=== PATIENT | female | born 1955 | race Caucasian/White ===

== ENCOUNTER 2018-08-04 10:02 | Day surgery (SDC) | payer MEDICARE, MEDICAID ==
[2018-08-03 16:32] LABS: BASOPHILS # (AUTO) 0.1 X10'3 (0-0.2); BASOPHILS % (AUTO) 1.2 % (0-1); EOSINOPHILS # (AUTO) 0.4 X10'3 (0-0.9); EOSINOPHILS % (AUTO) 5.6 % (0-6); HEMATOCRIT 23.2 % (35.0-45.0); HEMOGLOBIN 7.1 g/dl (12.0-16.0); LYMPHOCYTES # (AUTO) 2.5 X10'3 (1.1-4.8); LYMPHOCYTES % (AUTO) 35.2 % (21-51); MEAN CORPUSCULAR HEMOGLOBIN 18.7 PG (27.0-31.0); MEAN CORPUSCULAR HGB CONC 30.6 % (33.0-36.5); MEAN CORPUSCULAR VOLUME 61.1 FL (78-98); MEAN PLATELET VOLUME 7.6 FL (7.4-10.4); MONOCYTES # (AUTO) 0.6 X10'3 (0-0.9); MONOCYTES % (AUTO) 8.4 % (2-12); NEUTROPHILS # (AUTO) 3.5 X10'3 (1.8-7.7); NEUTROPHILS % (AUTO) 49.6 % (42-75); PLATELET COUNT 436 X10'3 (140-440); RED CELL DISTRIBUTION WIDTH 16.5 % (11.5-14.5)
[2018-08-03 16:40] LABS: INR 1.2 INR; PARTIAL THROMBOPLASTIN TIME 26 SECONDS (22-32); PROTHROMBIN TIME 12.5 SECONDS (9.0-12.0)
[2018-08-03 16:44] LABS: ALBUMIN 4.1 G/DL (3.4-5.0); ANION GAP 14 (8-16); BLOOD UREA NITROGEN 20 MG/DL (7-18); BUN/CREATININE RATIO 9.6 (6.6-38.0); CALCIUM 8.8 MG/DL (8.5-10.1); CHLORIDE 101 MMOL/L (99-107); CREATININE 2.08 MG/DL (0.40-0.90); GLUCOSE 110 MG/DL (70-104); POTASSIUM 3.9 MMOL/L (3.5-5.1); SODIUM 136 MMOL/L (135-145); TOTAL CARBON DIOXIDE 21.1 MMOL/L (24-32); eGFR 24 ML/MIN
[2018-08-03 17:06] LABS: ANISOCYTOSIS 1+; HYPOCHROMASIA 1+; MICROCYTOSIS 2+; PLATELET ESTIMATE NORMAL
[2018-08-03 17:08] LABS: POIKILOCYTOSIS 1+; POLYCHROMASIA 1+; SPHEROCYTES FEW; TARGET CELLS FEW; TEAR DROP CELLS FEW
[~2018-08-04] VITALS: Ht 154.9 cm; Wt 93.3 kg
[2018-08-04] VITALS (12 sets, daily range): BP systolic 133–174; BP diastolic 62–85
[2018-08-04] MEDS ORDERED: normal saline 1000ml 1,000 ML IV SCH (10:35)
[2018-08-04] MEDS ORDERED: PANT-47 PO (10:39)
[2018-08-04] MEDS ORDERED: HYDR-565 PO (10:39)
[2018-08-04] MEDS ORDERED: ISOS10TA8 (10:39)
[2018-08-04] MEDS ORDERED: HYDR25TA4 PO (10:39)
[2018-08-04] MEDS ORDERED: NAPR-996 PO (10:39)
[2018-08-04] MEDS ORDERED: ADAL40PE SUBCUT (10:39)
[2018-08-04] MEDS ORDERED: BIOT10004 PO (10:39)
[2018-08-04] MEDS ORDERED: ENAL20TA75 PO (10:39)
[2018-08-04] MEDS ORDERED: FENO160T13 PO (10:39)
[2018-08-04] MEDS ORDERED: CARV-50 PO (10:39)
[2018-08-04] MEDS ORDERED: HYDR200T80 PO (10:39)
[2018-08-04] MEDS ORDERED: LORazepam 0.5 MG tablet PO PRN (11:30)
[2018-08-04] MEDS ORDERED: acetylcysteine 200 MG/ml 4ml vial PO SCH ×2 (11:30→14:32)
[2018-08-04] MEDS ORDERED: diphenhydrAMINE 25mg capsule PO PRN (11:30)
[2018-08-04] MEDS ORDERED: sod bicarbonate 150mEq in D5W 1,150 ML IV ONE (11:40)
[2018-08-04] MEDS ORDERED: iohexol 350 MG/ML 50ML vial IV ONE (12:03)
[2018-08-04] MEDS ORDERED: heparin 1,000unit/ml 10ml vial 10 ML ONE (12:03)
[2018-08-04] MEDS ORDERED: iohexol 350MG/ML 100ml bottle IV ONE (12:03)
[2018-08-04] MEDS ORDERED: nitroGLYCERIN-Tridil 50MG/D5W 250 ML IV ONE (12:03)
[2018-08-04] MEDS ORDERED: LIDOcaine 1% 30ml preserv. free vial ONE (12:04)
[2018-08-04] MEDS ORDERED: hydrALAZINE 20mg/ml inj. IV ONE (13:15)
[2018-08-04] MEDS ORDERED: HYDROmorphone 1 mg/ml syringe ONE (13:29)
[2018-08-04 13:35] LABS: ISTAT Hct MIX 23 %PCV (35-48); ISTAT O2 SATURATION MIX VENOUS 58 % (60-80); ISTAT SOURCE MIX
[2018-08-04 13:35] LABS: ISTAT HGB ART 7.8 g/dl (12.0-16.0); ISTAT Hct ART 23 %PCV (35-48); ISTAT O2 SATURATION ARTERIAL 97 % (95-98); ISTAT SOURCE ART
== END 2018-08-04 20:20 | disposition home or self-care (01) ==
LOC: SSTAY O 10:02
PROVIDERS: ATTEND Internal Medicine Cardiovascular Disease
DX: I25.118 Atherosclerotic heart disease of native coronary artery with other forms of angina pectoris (principal); I12.9 Hypertensive chronic kidney disease with stage 1 through stage 4 chronic kidney disease, or unspecified chronic kidney disease; N18.9 Chronic kidney disease, unspecified; E78.5 Hyperlipidemia, unspecified; M06.9 Rheumatoid arthritis, unspecified; E66.9 Obesity, unspecified; Z68.38 Body mass index [BMI] 38.0-38.9, adult; Z72.89 Other problems related to lifestyle; Z85.3 Personal history of malignant neoplasm of breast; Z90.11 Acquired absence of right breast and nipple; Z92.21 Personal history of antineoplastic chemotherapy; Z86.2 Personal history of diseases of the blood and blood-forming organs and certain disorders involving the immune mechanism; Z86.19 Personal history of other infectious and parasitic diseases; Z79.891 Long term (current) use of opiate analgesic; Z90.710 Acquired absence of both cervix and uterus; Z90.49 Acquired absence of other specified parts of digestive tract; Z79.899 Other long term (current) drug therapy; Z98.890 Other specified postprocedural states; Z83.3 Family history of diabetes mellitus
CPT/HCPCS: 36415; 80048; 82803; 85014; 85025; 85610; 85730; 93005; 93460; A6257; A6449; C1769; J0360; J1170; J1644; J3490; J7030; Q0163; Q9967

== ENCOUNTER 2019-12-29 07:09 | Observation (INO) | payer MEDICARE, MEDICAID ==
[2019-12-28 17:35] LABS: ALBUMIN 4.2 G/DL (3.4-5.0); ANION GAP 13 (8-16); BLOOD UREA NITROGEN 18 MG/DL (7-18); BUN/CREATININE RATIO 13.7 (6.6-38.0); CALCIUM 8.7 MG/DL (8.5-10.1); CHLORIDE 107 MMOL/L (99-107); CREATININE 1.31 MG/DL (0.40-0.90); GLUCOSE 97 MG/DL (70-104); POTASSIUM 3.6 MMOL/L (3.5-5.1); SODIUM 143 MMOL/L (135-145); TOTAL CARBON DIOXIDE 22.9 MMOL/L (24-32); eGFR 41 ML/MIN
[2019-12-28 17:39] LABS: BASOPHILS # (AUTO) 0.1 X10'3 (0-0.2); BASOPHILS % (AUTO) 0.9 % (0-1); EOSINOPHILS # (AUTO) 0.3 X10'3 (0-0.9); EOSINOPHILS % (AUTO) 3.5 % (0-6); HEMATOCRIT 41.7 % (35.0-45.0); HEMOGLOBIN 14.2 g/dl (12.0-16.0); LYMPHOCYTES # (AUTO) 3.4 X10'3 (1.1-4.8); MEAN CORPUSCULAR HEMOGLOBIN 30.9 PG (27.0-31.0); MEAN CORPUSCULAR HGB CONC 34.2 g/dL (33.0-36.5); MEAN CORPUSCULAR VOLUME 90.3 FL (78-98); MEAN PLATELET VOLUME 9.2 FL (7.4-10.4); MONOCYTES # (AUTO) 0.6 X10'3 (0-0.9); MONOCYTES % (AUTO) 6.9 % (2-12); NEUTROPHILS # (AUTO) 4.1 X10'3 (1.8-7.7); NEUTROPHILS % (AUTO) 48.7 % (42-75); PARTIAL THROMBOPLASTIN TIME 29 SECONDS (22-32); PLATELET COUNT 230 X10'3 (140-440); RED BLOOD COUNT 4.61 X10'6 (4.20-5.60); WHITE BLOOD COUNT 8.5 X10'3 (4.5-11.0)
[~2019-12-29] VITALS: Ht 154.9 cm; Wt 95.3 kg
[2019-12-29] VITALS (15 sets, daily range): BP systolic 116–179; BP diastolic 57–75
[~2019-12-29 07:09] MED LIST: ADAL40PE SUBCUT; BIOT10004 PO; CARV-50 PO; ENAL20TA75 PO; FENO160T13 PO; HYDR-4353 PO; HYDR200T80 PO; HYDR25TA4 PO; ISOS10TA8; NAPR-996 PO; PANT-47 PO
[2019-12-29] MEDS ORDERED: normal saline 1,000 ML IV SCH (07:25)
[2019-12-29] MEDS ORDERED: LORazepam 0.5 MG tablet PO PRN (07:25)
[2019-12-29] MEDS ORDERED: diphenhydrAMINE 25mg capsule PO PRN (07:25)
[2019-12-29] MEDS ORDERED: LIDOcaine/PRILOcaine 5gm cream TP ONE (07:30)
[2019-12-29] MEDS ORDERED: ROSU10TA2 PO (07:50)
[2019-12-29] MEDS ORDERED: VITA-268 PO (07:50)
[2019-12-29] MEDS ORDERED: ASPI81TA52 PO (07:50)
[2019-12-29] MEDS ORDERED: DILT-88 PO (07:50)
[2019-12-29] MEDS ORDERED: HYDR-3968 PO (07:50)
[2019-12-29] MEDS ORDERED: acetylcysteine 200 MG/ml 4ml vial PO ONE (09:15)
[2019-12-29] MEDS ORDERED: midazolam 2 mg/2 ml injection ONE (09:17)
[2019-12-29] MEDS ORDERED: nitroGLYCERIN-Tridil 50MG/D5W 250 ML IV ONE (09:17)
[2019-12-29] MEDS ORDERED: LIDOcaine 1% (10mg/ml)w/preservative injection 20ml MDV ONE (09:17)
[2019-12-29] MEDS ORDERED: heparin 1,000unit/ml 10ml vial 10 ML ONE (09:17)
[2019-12-29] MEDS ORDERED: iohexol 350MG/ML 100ml bottle IV ONE (09:17)
[2019-12-29] MEDS ORDERED: verapamil 2.5 mg/ml inj IV ONE (09:17)
[2019-12-29] MEDS ORDERED: fentaNYL/PF 50MCG/1 ML 2ML syringe ONE (09:17)
[2019-12-29] MEDS ORDERED: iohexol 350 MG/ML 50ML vial IV ONE (09:17)
[2019-12-29] MEDS ORDERED: sodium bicarbonate (8.4%) inj. 75 ML in dextrose 5% water 500ml 500 ML IV ONE (09:35)
[2019-12-29] MEDS ORDERED: iohexol 350 MG/1 ML 200ml bottle ONE (10:21)
[2019-12-29] MEDS ORDERED: heparin 25,000 UNIT/250ml bag 250 ML IV ONE (10:21)
[2019-12-29] MEDS ORDERED: hydrALAZINE 20mg/ml inj. IV ONE (10:37)
[2019-12-29] MEDS ORDERED: clopidogrel 300mg tablet ONE (10:50)
[2019-12-29] MEDS ORDERED: heparin 25,000 UNIT/250ml bag 250 ML IV SCH (11:39)
[2019-12-29] MEDS ORDERED: heparin 10,000 units/1 ML INJ IV PRN (11:40)
[2019-12-29] MEDS ORDERED: HYDROcodone/acetaminophen 5mg/325mg tablet PO PRN (11:45)
[2019-12-29] MEDS ORDERED: CLOPIDOGREL BISULFATE 300MG TAB PO ONE (11:50)
[2019-12-29] MEDS ORDERED: acetaminophen 325mg tablet PO PRN (11:50)
[2019-12-29] MEDS ORDERED: magnesium hydroxide 30ml (MOM) UD suspension PO PRN (11:50)
[2019-12-29] MEDS ORDERED: cyclobenzaprine 10mg tablet PO PRN (11:50)
[2019-12-29] MEDS ORDERED: OXAZEpam 15mg capsule PO PRN (11:50)
[2019-12-29] MEDS ORDERED: proCHLORperazine 10 MG/2 ml inj IV PRN (11:50)
[2019-12-29] MEDS ORDERED: HYDROcodone/acetaminophen 10/325mg tab PO PRN (11:50)
[2019-12-29] MEDS: HYDROcodone/acetaminophen 10/325mg tab PO PRN ×2 (12:05→22:11)
[2019-12-29] MEDS ORDERED: morphine 2 MG/ML inj. syringe IV ONE ×2 (13:15→16:10)
[2019-12-29] MEDS ORDERED: morphine 2 MG/ML inj. syringe IV PRN (13:45)
--- NOTE | 2019-12-29 13:45 | NUR ---
TORY RN DID ACT TEST, PULLED SHEATH AFTER ONE HOUR PER MD ORDERS. FEMSTOP WAS PLACED, SMALL HEMATOMA AFTER FEMSTOP WAS PLACED, HOWEVER PRESSURE WAS HELD, RESOLVED. CONTINUING TO MONITOR PATIENT. 2MG MORPHINE WAS GIVEN PER MD ORDERS FOR SEVERE SHOOTING PAIN DOWN HER LEG, MD AWARE.
--- NOTE | 2019-12-29 16:10 | NUR ---
Patient started having severe pain, had another nurse come and look, held pressure on a hematoma that had just started. Patient keeps complaining of severe pain during and after holding pressure. Called lab analyst RN to come and evaluate patient. Vascular is being ordered.
--- NOTE | 2019-12-29 17:00 | NUR ---
VASCULAR SCANNED PATIENTS RIGHT GROIN AND RIGHT LEG, PATIENT WAS HAVING SEVERE SHOOTING PAIN DOWN HER LEG REACHING 8/9 OUT OF TEN. MARISSA RN FROM GEOGRAPHY DEPARTMENT CHAIR CAME DOWN TO EXAMINE PATIENT WELL I HAD TOLD HER THAT HER HEMATOMA STARTED OUT SMALL AFTER AN RN HAD PULLED THE SHEATH, HOWEVER HOLDING PRESSURE THE HEMATOMA KEPT GETTING RESOLVED, WOULD GO BACK TO SOFT, NONTENDER. AFTER HOLDING PRESSURE AND HEMATOMA WAS RESOLVED, IT KEPT COMING BACK RIGHT AWAY. HAD SEVERAL NURSES HOLD PRESSURE, MORPHINE WAS ORDERED TOV BY DR. MAHMOOD, AND WAS ADMINISTERED. VASCULAR STATED IT LOOKED GOOD, OTHER THAN A LARGE HEMATOMA, DR. MAHMOOD WAS AT BEDSIDE TO OBSERVE ULTRASOUND WELL, STATED TO HOLD PRESSURE FOR ANOTHER 15 MINUTES, HEMATOMA RESOLVED AGAIN, FEMSTOP AND DRESSING BACK IN PLACE. DRESSING CDI, SITE SOFT AT THIS TIME, WITH SOME ECCHYMOSIS. PATIENT STATED SOME RELIEF AFTER LAST ATTEMPT AT HOLDING PRESSURE ON HEMATOMA, AND AFTER THE MORPHINE WAS GIVEN. CONTINUING TO MONITOR PATIENT. DR MAHMOOD STATED TO ADMIT PATIENT TO ACCE UNIT AND TO ORDER 2MG IV MORPHINE Q 1 HOUR, ORDERS VERIFIED.
--- NOTE | 2019-12-29 17:40 | NUR ---
Received report from Lorena in Short Stay regarding this patient. I was told that patient will be admitted for observation due to hematoma after heart cath. Approach was to right groin and an attempted right radial approach. The patient will need to lay flay for 7 hours, patient has fem-stop in place per Lorena. I noted that the orders for admit by Dr. Thompson are not in the computer and I was advised by the charge on Arron ALTMAN that the nurse must make sure that the orders for the patient are in the computer prior to the patient coming to the floor.
[2019-12-29] MEDS: morphine 2 MG/ML inj. syringe IV PRN ×2 (17:50→20:37)
--- NOTE | 2019-12-29 18:00 | NUR ---
PATIENT WAS GIVEN MORPHINE FOR 6/[address] MAHMOOD ORDERS. PATIENT STARTED DEVELOPING SLIGHT HEMATOMA BEFORE TRANSFERRING UP TO ACCE. HELD PRESSURE FOR 15 MINUTES, HEMATOMA RESOLVED AGAIN RIGHT GROIN. PATIENT STILL HAS DRESSING ON CDI, SMALL HEMATOMA THAT HAS KEPT RECURRING, DR. MAHMOOD IS AWARE OF, HE STATED TO JUST HOLD PRESSURE FOR 15 MINUTES AND THEN RESUME FEMSTOP. NOTIFIED ACCE NURSE THAT SHE WAS TO LAY FLAT UNTIL 7 OR 7:30 WITH FEMSTOP PER MD ORDERS. PATIENT WAS TRANSFERRED IN STABLE CONDITION, VITALS STABLE. CHART, BELONGINGS, AND FAMILY WERE MOVED TO ACCE ROOM 316. NOTIFIED NURSE OF NEW STENT, SHE HAD PLAVIX, AND SHE NEEDS TO GO HOME WITH NEW PRESCRIPTIONS ON DISCHARGE. PATIENT WAS NOTIFIED OF NEW MEDICATIONS WELL.
--- NOTE | 2019-12-29 18:25 | NUR ---
Problems reprioritized. Patient report given, questions answered & plan of care reviewed with ALEX Whelan.
--- NOTE | 2019-12-29 18:30 | NUR ---
Patient in room MED 316. I have received report from ANNEL JOHNSON and had the opportunity to ask questions and assume patient care.
--- NOTE | 2019-12-29 20:45 | NUR ---
Took femstop off pt around 19:50 when site was assessed and no worsening hematoma, and stable site and pt condition. Slowly sat pt up. She requested to go to the toilet and after using it she complained of right leg pain. Groin site was assessed and a new hematoma was found forming, so immediate pressure was held and femstop replaced. Vitals were taken and pt placed in a supine positions. Pressure held for about 15 minutes and hematoma resolved, site marked for monitoring. Jay was called and he ordered AM labs and EKG for morning.
[2019-12-29] MEDS: docusate sod 100mg capsule PO SCH (22:04)
[2019-12-30 02:00] VITALS: BP 132/65
[2019-12-30] MEDS: HYDROcodone/acetaminophen 10/325mg tab PO PRN ×2 (03:12→09:44)
--- NOTE | 2019-12-30 05:57 | NUR ---
Pts groin site looks good, with no new hematoma or swelling. Assessed the right groin site frequently throughout night, and it was soft with no new bruising or hardening, assessed pulses frequently which were strong throughout night.
[2019-12-30 06:00] VITALS: BP 110/57
[2019-12-30] MEDS ORDERED: non-formulary drug (Hydrocodone Bit/Acetaminophen (Hydrocodon-Acetaminoph 7.5-325) 1 TAB) PO SCH (06:20)
[2019-12-30] MEDS ORDERED: non-formulary drug (Adalimumab (Humira) 1 SYR) SUBCUT SCH (06:20)
[2019-12-30 06:26] LABS: BASOPHILS # (AUTO) 0.1 X10'3 (0-0.2); BASOPHILS % (AUTO) 0.6 % (0-1); EOSINOPHILS # (AUTO) 0.1 X10'3 (0-0.9); EOSINOPHILS % (AUTO) 1.6 % (0-6); HEMATOCRIT 34.4 % (35.0-45.0); HEMOGLOBIN 12.1 g/dl (12.0-16.0); LYMPHOCYTES # (AUTO) 2.7 X10'3 (1.1-4.8); LYMPHOCYTES % (AUTO) 28.7 % (21-51); MEAN CORPUSCULAR HEMOGLOBIN 31.7 PG (27.0-31.0); MEAN CORPUSCULAR HGB CONC 35.3 g/dL (33.0-36.5); MEAN CORPUSCULAR VOLUME 89.8 FL (78-98); MONOCYTES # (AUTO) 0.6 X10'3 (0-0.9); MONOCYTES % (AUTO) 6.4 % (2-12); NEUTROPHILS # (AUTO) 5.8 X10'3 (1.8-7.7); NEUTROPHILS % (AUTO) 62.7 % (42-75); PLATELET COUNT 197 X10'3 (140-440); RED BLOOD COUNT 3.83 X10'6 (4.20-5.60); RED CELL DISTRIBUTION WIDTH 13.1 % (11.5-14.5); WHITE BLOOD COUNT 9.3 X10'3 (4.5-11.0)
[2019-12-30] MEDS ORDERED: ISOS30TA6 PO (06:27)
[2019-12-30] MEDS ORDERED: CARV6.253 PO ×2 (06:27→14:40)
--- NOTE | 2019-12-30 06:38 | NUR ---
Problems reprioritized. Patient report given, questions answered & plan of care reviewed with Chasity JOHNSON.
[2019-12-30 06:40] LABS: ALANINE AMINOTRANSFERASE 20 U/L (12-78); ALBUMIN 3.3 G/DL (3.4-5.0); ALBUMIN/GLOBULIN RATIO 1.1 (1.1-1.5); ALKALINE PHOSPHATASE 59 IU/L (46-116); ANION GAP 8 (8-16); ASPARTATE AMINO TRANSFERASE 20 U/L (10-37); BILIRUBIN,TOTAL 0.6 MG/DL (0.1-1.0); BLOOD UREA NITROGEN 21 MG/DL (7-18); BUN/CREATININE RATIO 15.8 (6.6-38.0); CHLORIDE 107 MMOL/L (99-107); CHOLESTEROL 82 MG/DL (0-200); CREATININE 1.33 MG/DL (0.40-0.90); GLUCOSE 108 MG/DL (70-104); HDL CHOLESTEROL 42 MG/DL (35-60); LDL CHOLESTEROL 26 MG/DL (50-100); POTASSIUM 3.6 MMOL/L (3.5-5.1); SODIUM 142 MMOL/L (135-145); TOTAL PROTEIN 6.3 G/DL (6.4-8.2); TRIGLYCERIDES 115 MG/DL (20-135); eGFR 40 ML/MIN
--- NOTE | 2019-12-30 07:04 | NUR ---
Patient in room MED 316. I have received report from ALEX Whelan and had the opportunity to ask questions and assume patient care.
[2019-12-30] MEDS ORDERED: atorvastatin 10mg tablet PO SCH (08:00)
[2019-12-30] MEDS ORDERED: aspirin 81mg tablet.DR PO SCH (08:00)
[2019-12-30] MEDS ORDERED: carvedilol 6.25mg tablet PO SCH ×2 (08:00→20:00)
[2019-12-30] MEDS ORDERED: clopidogrel 75mg tablet PO SCH (08:00)
[2019-12-30] MEDS ORDERED: vitamin B comp w/Vit. C tab 1 TAB TABLET PO SCH (08:00)
[2019-12-30] MEDS ORDERED: hydroxychloroquine 200mg tablet PO SCH (08:00)
[2019-12-30] MEDS ORDERED: lisinopril 20mg tablet PO SCH (08:00)
[2019-12-30] MEDS ORDERED: pantoprazole 40mg Tablet.DR PO SCH (08:00)
[2019-12-30] MEDS ORDERED: diltiazem CD 120mg capsule (once-daily) PO SCH (08:00)
[2019-12-30] MEDS ORDERED: fenofibrate 145mg tablet PO SCH (08:00)
[2019-12-30] MEDS ORDERED: isosorbide mononitrate 30mg tab.SR.24H PO SCH (08:00)
[2019-12-30] MEDS ORDERED: aspirin 81mg tab.chew PO SCH (08:30)
[2019-12-30] MEDS: docusate sod 100mg capsule PO SCH (09:41)
[2019-12-30 11:00] VITALS: BP 103/47
--- NOTE | 2019-12-30 14:30 | NUR ---
Dr. Thompson stopped by to look at the pt. hematoma post heart cath. He recommended that nursing puts a pressure dressing on the site and that the pt. leaves it on for 24 hours. pressure dressing has been placed and pt. understands the plan.
[2019-12-30] MEDS ORDERED: CLOP75TA35 PO (14:40)
[2019-12-30] MEDS ORDERED: ASPI-1071 PO (14:40)
--- NOTE | 2019-12-30 15:20 | NUR ---
pt. discharged from facility at 1305. pt. walked out to private vehicle accompanied by her son. pt. refused staff escort. pt. signed and understood all paperwork. pt. understands to make f/u appointments with her PCP and Dr. Thompson. all new meds were called into [facility] in [place]. pt. IV was d/c intact. pt. left with all belongings.
[2019-12-31] MEDS ORDERED: aspirin 81mg tablet.DR PO SCH (08:00)
--- NOTE | 2019-12-31 13:15 | NUR ---
Case management DC follow up: no VM available/continuous ring. will follow up at a later time.
[2020-01-04] MEDS ORDERED: ASPI-1130 PO (10:19)
[2020-01-04] MEDS ORDERED: CARV12.545 PO (10:19)
[2020-01-04] MEDS ORDERED: DILT120C52 PO (10:19)
[2020-01-04] MEDS ORDERED: CLOP75TA33 PO (10:19)
== END 2019-12-30 15:05 | disposition home or self-care (01) ==
LOC: SSTAY O 07:09 → MED 3N 17:46
PROVIDERS: ADMIT Internal Medicine Cardiovascular Disease; ATTEND Internal Medicine Cardiovascular Disease
DX: I25.10 Atherosclerotic heart disease of native coronary artery without angina pectoris (principal); R94.31 Abnormal electrocardiogram [ECG] [EKG]; E78.5 Hyperlipidemia, unspecified; I12.9 Hypertensive chronic kidney disease with stage 1 through stage 4 chronic kidney disease, or unspecified chronic kidney disease; N18.9 Chronic kidney disease, unspecified; E66.9 Obesity, unspecified; M06.9 Rheumatoid arthritis, unspecified; Z95.5 Presence of coronary angioplasty implant and graft; Z90.710 Acquired absence of both cervix and uterus; Z79.82 Long term (current) use of aspirin; Z79.02 Long term (current) use of antithrombotics/antiplatelets; Z79.899 Other long term (current) drug therapy; Z68.39 Body mass index [BMI] 39.0-39.9, adult
CPT/HCPCS: 36415; 80048; 80053; 80061; 85025; 85347; 85610; 85730; 93005; 93458; 93926; 96374; 96376; C1725; C1769; C1874; C1894; C9600; G0378; J0360; J1644; J2001; J2250; J2270; J3010; J7030; Q0163; Q9967; 99152; 99153; A4620; A5120; A6258; J3490